=== PATIENT | female | born 1980 | race Caucasian/White ===

== ENCOUNTER 2018-04-22 14:20 | Emergency (ER) | payer BC ==
--- NOTE | 2018-04-22 15:57 | ER Document Report ---
ED Medical Screen (RME) - General Chief Complaint: Vaginal Bleeding Stated Complaint: ABNORMAL BLEEDING Time Seen by Provider: 04/22/18 15:40 Primary Care Provider: EILEEN RUTLEDGE MD [ACTIVE STAFF] - Follow up as needed Notes: 38-year-old female patient emergency department with large amount of vaginal bleeding. States that she has had a large gush of blood when she was at work. Had another large gush of blood while here in the emergency department. Has had miscarriages in the past. Last miscarriage was in February. Thinks that she had a normal period earlier in the month. Mild cramping but no significant or severe pain. I have greeted and performed a rapid initial assessment of this patient. A comp rehensive ED assessment and evaluation of the patient, analysis of test results and completion of the medical decision making process will be conducted by additional ED providers. TRAVEL OUTSIDE OF THE [place] IN LAST 30 DAYS: No - Related Data Allergies/Adverse Reactions: No Known Allergies Allergy (Unverified 04/22/18 14:35) Physical Exam - Vital signs Vitals: Temp Pulse Resp BP Pulse Ox 98.9 F 64 16 118/67 100 04/22/18 14:40 04/22/18 14:40 04/22/18 14:40 04/22/18 14:40 04/22/18 14:40 Course - Vital Signs Vital signs: Temp Pulse Resp BP Pulse Ox 98.9 F 64 16 118/67 100 04/22/18 14:40 04/22/18 14:40 04/22/18 14:40 04/22/18 14:40 04/22/18 14:40 - Laboratory Result Diagrams: 04/22/18 16:00 04/22/18 16:00 Laboratory results interpreted by me: 04/22/18 16:00 Beta HCG, Quant 19.78 H Doctor's Discharge - Discharge Referrals: EILEEN RUTLEDGE MD [ACTIVE STAFF] - Follow up as needed
[2018-04-22 16:13] LABS: ABSOLUTE MONOCYTES (AUTO) 0.5 10^3/uL (0.1-1.4); ABSOLUTE NEUT (AUTO) 4.5 10^3/uL (1.7-8.2); BASOPHILS % (AUTO) 0.2 % (0-2); EOSINOPHILS % (AUTO) 0.5 % (0-6); HEMATOCRIT 40.1 % (36.0-47.0); HEMOGLOBIN 13.7 g/dL (12.0-15.5); LYMPHOCYTES % (AUTO) 28.1 % (13-45); MEAN CORPUSCULAR HEMOGLOBIN 31.9 pg (27.0-33.4); MEAN CORPUSCULAR HGB CONC 34.2 g/dL (32.0-36.0); MEAN CORPUSCULAR VOLUME 93 fl (80-97); MONOCYTES % (AUTO) 7.5 % (3-13); PLATELET COUNT 285 10^3/uL (150-450); RED CELL DISTRIBUTION WIDTH 13.6 % (11.5-14.0); SEGMENTED NEUTROPHILS % (AUTO) 63.7 % (42-78); TOTAL CELLS COUNTED % (AUTO) 100 %; WHITE BLOOD COUNT 7.1 10^3/uL (4.0-10.5)
[2018-04-22 16:38] LABS: ANION GAP 8 (5-19); BLOOD UREA NITROGEN 9 mg/dL (7-20); CALCIUM 9.6 mg/dL (8.4-10.2); CARBON DIOXIDE 27 mmol/L (22-30); CHLORIDE 103 mmol/L (98-107); GLUCOSE 109 mg/dL (75-110); SODIUM 138.1 mmol/L (137-145)
--- NOTE | 2018-04-22 18:10 | ER Document Report ---
ED General - General Chief Complaint: Vaginal Bleeding Stated Complaint: ABNORMAL BLEEDING Time Seen by Provider: 04/22/18 15:40 Primary Care Provider: EILEEN RUTLEDGE MD [ACTIVE STAFF] - Follow up as needed Information source: Patient TRAVEL OUTSIDE OF THE [place] IN LAST 30 DAYS: No - HPI Patient complains to provider of: Heavy vaginal bleeding Onset: Other - Around 130 this afternoon Onset/Duration: Sudden Quality of pain: No pain Severity: Moderate Context: Patient just had a miscarriage back in March. She did not have an evaluation by a doctor or any ultrasounds done. Associated symptoms: None Exacerbated by: Standing, Other - Standing up Relieved by: Supine Similar symptoms previously: Yes Recently seen / treated by doctor: No Notes: Patient is a 38-year-old female coming in today for sudden onset heavy vaginal bleeding. She reports that she had a miscarriage back in March but did not get any lab work or ultrasounds done. Patient states she has had many miscarriages in the past and this name. She is reporting heavy vaginal bleeding since about 130 this afternoon. Denies having intercourse or using any toys. She also denies having dizziness, lightheadedness, shortness of breath, and syncope. Patient reports that she is sexually active but is not taking any preventative measures to keep from getting . - Related Data Allergies/Adverse Reactions: No Known Allergies Allergy (Unverified 04/22/18 14:35) Past Medical History - General Information source: Patient - Social History Smoking Status: Current Every Day Smoker Chew tobacco use (# tins/day): No Frequency of alcohol use: Occasional Drug Abuse: None Family History: None, Reviewed & Not Pertinent Patient has suicidal ideation: No Patient has homicidal ideation: No Renal/ Medical History: Denies: Hx Peritoneal Dialysis Past Surgical History: Reports: Hx Gynecologic Surgery - D&C Review of Systems - Review of Systems Constitutional: denies: Chills, Fever EENT: No symptoms reported Cardiovascular: No symptoms reported Respiratory: No symptoms reported Gastrointestinal: No symptoms reported Genitourinary: No symptoms reported Female Genitourinary: Vaginal bleeding Musculoskeletal: No symptoms reported Skin: No symptoms reported Hematologic/Lymphatic: denies: Easy bleeding, Easy bruising Neurological/Psychological: No symptoms reported -: Yes All other systems reviewed and negative Physical Exam - Vital signs Vitals: Temp Pulse Resp BP Pulse Ox 98.9 F 64 16 118/67 100 04/22/18 14:40 04/22/18 14:40 04/22/18 14:40 04/22/18 14:40 04/22/18 14:40 - General General appearance: Appears well, Alert - HEENT Head: Normocephalic, Atraumatic Mucous membranes: Normal - Respiratory Respiratory status: No respiratory distress Breath sounds: Normal - Cardiovascular Rhythm: Regular Heart sounds: Normal auscultation Murmur: No - Abdominal Inspection: Normal Distension: No distension Bowel sounds: Normal Tenderness: Nontender Organomegaly: No organomegaly - Back Back: Normal - Extremities Notes: Moves all extremities well. Atraumatic - Neurological Neuro grossly intact: Yes - Skin Skin Temperature: Warm Skin Moisture: Dry Skin Color: Normal Course - Re-evaluation Re-evalutation: 04/22/18 18:13 We will go ahead and get lab work. Check for first. That will help us decide which direction to go from there. 04/22/18 21:24 test is barely positive. Ultrasound shows what may be some retained products. I discussed findings with Dr. Anderson. She said that she would follow the patient up in the next couple days in her office. Have the patient call them for an appointment. Discussed these plans with the patient and she is in agreement with the plan for discharge - Vital Signs Vital signs: Temp Pulse Resp BP Pulse Ox 98.9 F 64 16 118/67 100 04/22/18 14:40 04/22/18 14:40 04/22/18 14:40 04/22/18 14:40 04/22/18 14:40 - Laboratory Result Diagrams: 04/22/18 16:00 04/22/18 16:00 Laboratory results interpreted by me: 04/22/18 04/22/18 16:00 18:18 Beta HCG, Quant 19.78 H Urine Protein 100 H Urine Blood LARGE H Urine Urobilinogen 2.0 H - Diagnostic Test Radiology reviewed: Reports reviewed Discharge - Discharge Clinical Impression: Positive test, Vaginal bleeding Condition: Good Disposition: HOME, SELF-CARE Instructions: Dysfunctional Uterine Bleeding ([facility]), Miscarriage ([facility]) Additional Instructions: Return to the ER if your bleeding gets worse or if you get lightheaded, weak, or dizzy. Otherwise follow-up for your positive test with Dr. Anderson as directed. Referrals: EILEEN RUTLEDGE MD [ACTIVE STAFF] - Follow up as needed DEBBIE ANDERSON MD [ACTIVE STAFF] - Follow up tomorrow (Call the office for an appointment in the next couple of days. Please indicate that you were seen in the emergency department and that Dr. Anderson was consulted)
[2018-04-22 18:39] LABS: APPEARANCE,URINE CLEAR; BILIRUBIN,URINE NEGATIVE (NEGATIVE); CALCIUM OXALATE CRYSTALS,URINE RARE /HPF; COLOR,URINE YELLOW; GLUCOSE, URINE NEGATIVE (NEGATIVE); KETONES,URINE NEGATIVE (NEGATIVE); LEUKOCYTE ESTERASE,URINE NEGATIVE (NEGATIVE); NITRITE,URINE NEGATIVE (NEGATIVE); PROTEIN,URINE 100 mg/dL (NEGATIVE); URINE SPECIFIC GRAVITY 1.026
--- NOTE | 2018-04-22 20:58 | RADIOLOGY REPORT (SQ) ---
EXAM DESCRIPTION: US TRANSVAGINAL COMPLETED DATE/TME: 04/22/2018 19:04 CLINICAL HISTORY: 38 years, Female, heavy vag bleed. ectopic? retained products? COMPARISON: None. TECHNIQUE: Transverse and longitudinal transvaginal sonographic images of the pelvis LIMITATIONS: None. FINDINGS: The uterus measures 9.9 x 5.9 x 6.5 cm. The myometrium is heterogeneous.. The endometrium is diffusely heterogeneous in echotexture and thickened measuring approximately 4.6 cm. Poor definition between the endometrial border and surrounding myometrium. Small amount of free fluid. The right ovary measures 2.9 x 2.3 x 2.8 cm, the left ovary measures 3.7 x 2.0 x 2.3 cm. No adnexal cyst or mass. Normal flow to both ovaries.. IMPRESSION: Diffusely heterogeneous, thickened and poorly defined appearance to the endometrium particularly in the fundal region. Patient has a history of miscarriage. Retained products of conception is not excluded. Endometrial hyperplasia, polyps, or carcinoma are other considerations. copyright 2010 [employer]- All Rights Reserved
[2018-04-22 22:26] VITALS: BP 129/88
== END 2018-04-22 22:26 | disposition home or self-care (01) ==
LOC: ER 14:20
DX: N93.9 Abnormal uterine and vaginal bleeding, unspecified (principal); Z32.01 Encounter for pregnancy test, result positive; F17.200 Nicotine dependence, unspecified, uncomplicated
CPT/HCPCS: 36415; 76817; 80048; 81001; 84702; 85025; 99284

== ENCOUNTER 2018-05-02 09:24 | Emergency (ER) | payer SELFPAY ==
[2018-05-02 09:57] LABS: ABSOLUTE BASOPHILS # (AUTO) 0.1 10^3/uL (0.0-0.2); ABSOLUTE EOSINOPHILS # (AUTO) 0.1 10^3/uL (0.0-0.6); ABSOLUTE LYMPHOCYTES (AUTO) 3.2 10^3/uL (0.5-4.7); ABSOLUTE MONOCYTES (AUTO) 0.8 10^3/uL (0.1-1.4); ABSOLUTE NEUT (AUTO) 5.7 10^3/uL (1.7-8.2); BASOPHILS % (AUTO) 0.6 % (0-2); EOSINOPHILS % (AUTO) 0.9 % (0-6); HEMATOCRIT 33.2 % (36.0-47.0); LYMPHOCYTES % (AUTO) 32.5 % (13-45); MEAN CORPUSCULAR HEMOGLOBIN 30.7 pg (27.0-33.4); MEAN CORPUSCULAR HGB CONC 33.1 g/dL (32.0-36.0); MEAN CORPUSCULAR VOLUME 93 fl (80-97); MONOCYTES % (AUTO) 7.9 % (3-13); PLATELET COUNT 408 10^3/uL (150-450); RED BLOOD COUNT 3.58 10^6/uL (3.72-5.28); RED CELL DISTRIBUTION WIDTH 13.6 % (11.5-14.0); SEGMENTED NEUTROPHILS % (AUTO) 58.1 % (42-78); TOTAL CELLS COUNTED % (AUTO) 100 %; WHITE BLOOD COUNT 9.8 10^3/uL (4.0-10.5)
[2018-05-02 10:15] LABS: ALANINE AMINOTRANSFERASE 18 U/L (9-52); ALBUMIN 4.4 g/dL (3.5-5.0); ALKALINE PHOSPHATASE 74 U/L (38-126); ANION GAP 11 (5-19); ASPARTATE AMINO TRANSFERASE 23 U/L (14-36); BILIRUBIN,DIRECT 0.3 mg/dL (0.0-0.4); BILIRUBIN,TOTAL 0.4 mg/dL (0.2-1.3); BLOOD UREA NITROGEN 8 mg/dL (7-20); CALCIUM 9.3 mg/dL (8.4-10.2); CARBON DIOXIDE 23 mmol/L (22-30); CHLORIDE 106 mmol/L (98-107); GLUCOSE 113 mg/dL (75-110); POTASSIUM 3.9 mmol/L (3.6-5.0); SODIUM 140.4 mmol/L (137-145)
[2018-05-02 11:27] LABS: APPEARANCE,URINE SLIGHTLY-CLOUDY; BILIRUBIN,URINE NEGATIVE (NEGATIVE); COLOR,URINE YELLOW; GLUCOSE, URINE NEGATIVE (NEGATIVE); KETONES,URINE NEGATIVE (NEGATIVE); LEUKOCYTE ESTERASE,URINE NEGATIVE (NEGATIVE); NITRITE,URINE NEGATIVE (NEGATIVE); PROTEIN,URINE NEGATIVE (NEGATIVE)
--- NOTE | 2018-05-02 13:04 | ER Document Report ---
ED General - General Chief Complaint: Vaginal Bleeding Stated Complaint: VAGINAL BLEEDING Time Seen by Provider: 05/02/18 09:52 TRAVEL OUTSIDE OF THE [place] IN LAST 30 DAYS: No - HPI Patient complains to provider of: Vaginal bleeding Notes: Patient coming in for evaluation of vaginal bleeding. Patient recently seen for miscarriage with retained products of conception was post follow-up with her [facility] however due to no insurance and lack of money patient was unable to follow-up continues to have vaginal bleeding therefore came today. Patient states that the bleeding is now intermittent however when she sits up or coughs or sneeze there is a bill[place] of blood. Patient denies any abdominal pain denies any fevers chills nausea vomiting diarrhea. Patient is a - Related Data Allergies/Adverse Reactions: No Known Allergies Allergy (Unverified 04/22/18 14:35) Past Medical History - Social History Smoking Status: Never Smoker Family History: None, Reviewed & Not Pertinent Patient has suicidal ideation: No Patient has homicidal ideation: No Renal/ Medical History: Denies: Hx Peritoneal Dialysis Past Surgical History: Reports: Hx Gynecologic Surgery - D&C Review of Systems - Review of Systems Constitutional: No symptoms reported EENT: No symptoms reported Cardiovascular: No symptoms reported Respiratory: No symptoms reported Gastrointestinal: No symptoms reported Genitourinary: No symptoms reported Female Genitourinary: Vaginal bleeding Musculoskeletal: No symptoms reported Skin: No symptoms reported Hematologic/Lymphatic: No symptoms reported Neurological/Psychological: No symptoms reported -: Yes All other systems reviewed and negative Physical Exam - Vital signs Vitals: Resp Pulse Ox 13 99 05/02/18 09:42 05/02/18 09:42 Interpretation: Normal - General General appearance: Appears well, Alert - HEENT Head: Normocephalic, Atraumatic Eyes: Normal Pupils: PERRL - Respiratory Respiratory status: No respiratory distress Chest status: Nontender Breath sounds: Normal Chest palpation: Normal - Cardiovascular Rhythm: Regular Heart sounds: Normal auscultation Murmur: No - Abdominal Inspection: Normal Distension: No distension Bowel sounds: Normal Tenderness: Nontender Organomegaly: No organomegaly - Genitourinary External exam: Normal Speculum exam: Other - Cervix is closed with a mild amount of blood coming out of the cervical os Vaginal bleeding: Mild - Back Back: Normal, Nontender - Extremities General upper extremity: Normal inspection, Nontender, Normal color, Normal ROM, Normal temperature General lower extremity: Normal inspection, Nontender, Normal color, Normal ROM, Normal temperature, Normal weight bearing. No: Andrei's sign - Neurological Neuro grossly intact: Yes Cognition: Normal Orientation: AAOx4 [place] Coma Scale Eye Opening: Spontaneous [place] Coma Scale Verbal: Oriented [place] Coma Scale Motor: Obeys Commands [place] Coma Scale Total: 15 Speech: Normal Motor strength normal: LUE, RUE, LLE, RLE Sensory: Normal - Psychological Associated symptoms: Normal affect, Normal mood - Skin Skin Temperature: Warm Skin Moisture: Dry Skin Color: Normal Course - Re-evaluation Re-evalutation: 05/02/18 14:53 Beta-hCG is 5 otherwise negative but has decreased from 20. Discussed with Dr[address] Yi who is on-call for [facility] agrees at this time no need for any further imaging patient can follow-up with health department for control. Patient will be discharged home 05/02/18 14:54 We will give iron tablets for anemia. - Vital Signs Vital signs: Temp Pulse Resp BP Pulse Ox 98.6 F 80 14 112/82 100 05/02/18 13:20 05/02/18 09:53 05/02/18 13:19 05/02/18 13:19 05/02/18 13:19 - Laboratory Result Diagrams: 05/02/18 09:41 05/02/18 09:41 Laboratory results interpreted by me: 05/02/18 05/02/18 05/02/18 09:41 09:41 10:47 RBC 3.58 L Hgb 11.0 L Hct 33.2 L Glucose 113 H Urine Blood LARGE H Urine Urobilinogen 2.0 H Discharge - Discharge Clinical Impression: Vaginal bleeding, Anemia Disposition: HOME, SELF-CARE Instructions: Miscarriage ([facility]), Vaginal Bleeding ([facility]) Additional Instructions: Your evaluation today shows that your test has decreased your hormone is negative indicating that you have passed all tissue. Your pelvic examination not show anything within the cervical office that would need to be removed. He can expect to continue to have intermittent bleeding equivocal to a long heavy menstrual cycle your blood work does show some signs of anemia I would recommend starting iron tablets he may take the prescription or take [id number] iron supplements. I would recommend follow-up with the health department for further evaluation of control menstruation. Prescriptions: Ferrous Sulfate [Iron] 325 mg PO DAILY #30 tablet Forms: Return to Work
[2018-05-02 13:21] VITALS: BP 112/82
== END 2018-05-02 13:20 | disposition home or self-care (01) ==
LOC: ER 09:24
DX: N93.9 Abnormal uterine and vaginal bleeding, unspecified (principal); D64.9 Anemia, unspecified; Z87.59 Personal history of other complications of pregnancy, childbirth and the puerperium
CPT/HCPCS: 36415; 80053; 81001; 84702; 85025; 99284